=== PATIENT | male | born 1940 | race Caucasian/White ===

== ENCOUNTER 2022-08-01 10:16 | Inpatient (IN) | payer MEDICARE, OTHER ==
[2022-07-31 13:55] LABS: BASOPHILS # (AUTO) 0.1 (0.0-0.1); BASOPHILS % 1.2 % (0.0-1.0); EOSINOPHILS # (AUTO) 0.1 (0.0-0.4); EOSINOPHILS % 1.6 % (0.0-6.0); HEMATOCRIT 46.1 % (38.2-49.6); HEMOGLOBIN 13.9 g/dL (14.0-18.0); LYMPHOCYTES # (AUTO) 0.9 (1.0-3.2); LYMPHOCYTES % 18.5 % (18.0-39.1); MEAN CORPUSCULAR HEMOGLOBIN 31.7 pg (28-32); MEAN CORPUSCULAR HGB CONC 30.2 g/dL (31-35); MONOCYTES # (AUTO) 0.6 (0.2-0.8); MONOCYTES % 11.4 % (4.4-11.3); NEUTROPHILS # (AUTO) 3.2 (2.1-6.9); NEUTROPHILS % 65.9 % (38.7-80.0); PLATELET COUNT 145 x10e3/uL (140-360); RED BLOOD COUNT 4.39 x10e6/uL (4.3-5.7); RED CELL DISTRIBUTION WIDTH 14.6 % (11.7-14.4)
[2022-07-31 14:11] LABS: ANION GAP 16.8 mmol/L (8-16); CREATININE, SERUM 1.09 mg/dL (0.72-1.25); POTASSIUM 4.8 mmol/L (3.5-5.1)
[~2022-08-01] VITALS: Ht 185.4 cm; Wt 97.5 kg
[~2022-08-01 10:16] MED LIST: ACETAMINOPHEN325 M1 PO; AMIODARONE HCL; ANUSOL-HC25 MG RC; BUMETANIDE; CELECOXIB; CLOTRIMAZOLE-BE15 GM TOP; CRESTOR10 MG PO; DOCUSATE SODIU100 MG PO; FEROSUL325 MG PO; FLOMAX0.4 MG PO; GENTAMICIN; LATANOPROST2.5 ML OP; NEURONTIN300 MG PO; OMEPRAZOLE40 MG PO; VITAMIN D32400 UNIT/
[2022-08-01] MEDS ORDERED: IOPAMIDOL 610MG/1ML 300 MG/ML VIAL IV ONE (13:40)
[2022-08-01] MEDS ORDERED: BUPIVACAINE HCL 0.5% INJ 30 ML VIAL INJ ONE (13:40)
[2022-08-01] MEDS ORDERED: LIDOCAINE HCL/EPINEPHRINE/PF 10 ML VIAL ONE (13:42)
[2022-08-01] MEDS ORDERED: POVIDONE IODINE 0.05% 0.05 % ML PO ONE (14:16)
[2022-08-01] MEDS ORDERED: ONDANSETRON HCL INJ 2MG/ML 2ML 2 MG/ML VIAL ONE (14:16)
[2022-08-01] MEDS ORDERED: GLYCOPYRROLATE INJ 0.2 MG/ML VIAL ONE (14:16)
[2022-08-01] MEDS ORDERED: SEVOFLURANE INHAL SOLN 250 ML PEN BTL ONE (14:16)
[2022-08-01] MEDS ORDERED: LIDOCAINE HCL 2% LOCAL INJ 5 ML SDV VIAL INJ ONE (14:16)
[2022-08-01] MEDS ORDERED: PROPOFOL IV EMULSION 10 MG/ML 20 ML VIAL ONE (14:16)
[2022-08-01] MEDS ORDERED: NEOSTIGMINE 1 MG/ML 10ML VIAL ONE (14:16)
[2022-08-01] MEDS ORDERED: ONDANSETRON HCL INJ 2MG/ML 2ML 2 MG/ML VIAL IV PRN (16:15)
[2022-08-01] MEDS ORDERED: PHENAZOPYRIDINE HCL 100 MG TAB PO PRN (16:15)
[2022-08-01] MEDS ORDERED: FENTANYL CITRATE/PF 100MCG/2 ML INJ ONE ×2 (17:23→18:10)
[2022-08-01 17:31] VITALS: BP 158/86
[2022-08-01 17:50] VITALS: BP 158/86
[2022-08-01] MEDS: DOCUSATE SODIUM 100 MG CAP PO SCH (18:00)
[2022-08-01] MEDS: ACETAMINOPHEN 1000 MG/100 ML IV PRN (18:01)
[2022-08-01] MEDS: SODIUM CHLORIDE 0.9% 1000ML 1,000 ML IV SCH (18:01)
[2022-08-01] MEDS ORDERED: MIDAZOLAM HCL 2 MG/2 ML VIAL ONE (18:10)
[2022-08-01] MEDS: ACETAMINOPHEN/CODEINE 300MG - 30MG TAB PO PRN ×2 (19:30→23:58)
[2022-08-01 20:11] VITALS: BP 123/64
[2022-08-01 20:26] VITALS: BP 123/64
[2022-08-01] MEDS: DIPHENHYDRAMINE HCL 25 MG CAP PO PRN (20:56)
[2022-08-01] MEDS ORDERED: ACETAMINOPHEN 325 MG TAB PO PRN (22:45)
[2022-08-01] MEDS ORDERED: GABAPENTIN 300 MG CAP PO ONE (23:45)
[2022-08-02] VITALS (8 sets, daily range): BP systolic 138–151; BP diastolic 75–82
[2022-08-02] MEDS: SODIUM CHLORIDE 0.9% 1000ML 1,000 ML IV SCH ×2 (05:52→20:41)
[2022-08-02 08:03] LABS: BASOPHILS % 0.3 % (0.0-1.0); HEMATOCRIT 42.2 % (38.2-49.6); LYMPHOCYTES # (AUTO) 0.5 (1.0-3.2); LYMPHOCYTES % 6.6 % (18.0-39.1); MEAN CORPUSCULAR HEMOGLOBIN 31.9 pg (28-32); MEAN CORPUSCULAR HGB CONC 30.8 g/dL (31-35); MEAN CORPUSCULAR VOLUME 103.4 fL (81-99); MONOCYTES # (AUTO) 0.8 (0.2-0.8); MONOCYTES % 10.7 % (4.4-11.3); NEUTROPHILS # (AUTO) 6.2 (2.1-6.9); NEUTROPHILS % 81.9 % (38.7-80.0); PLATELET COUNT 134 x10e3/uL (140-360); RED BLOOD COUNT 4.08 x10e6/uL (4.3-5.7); RED CELL DISTRIBUTION WIDTH 14.4 % (11.7-14.4)
[2022-08-02 08:18] LABS: CALCIUM 8.3 mg/dL (8.4-10.2); CREATININE, SERUM 0.96 mg/dL (0.72-1.25)
[2022-08-02] MEDS ORDERED: LATANOPROST(OPTH) 2.5 ML BTL OP SCH (09:00)
[2022-08-02] MEDS: DOCUSATE SODIUM 100 MG CAP PO SCH ×2 (09:00)
[2022-08-02] MEDS: SIMVASTATIN 20 MG TAB PO SCH (09:11)
[2022-08-02] MEDS: GABAPENTIN 300 MG CAP PO SCH (09:11)
[2022-08-02] MEDS: HYDROCORTISONE ACETATE 25 MG/SUPP.RECT SUPP RC SCH ×2 (09:11→14:48)
[2022-08-02] MEDS: PANTOPRAZOLE SOD 40 MG TABEC PO SCH (09:11)
[2022-08-02] MEDS: ACETAMINOPHEN/CODEINE 300MG - 30MG TAB PO PRN (09:11)
[2022-08-02] MEDS: FERROUS SULFATE 325 MG TAB PO SCH (09:11)
[2022-08-02] MEDS: TAMSULOSIN HCL 0.4 MG CAP PO SCH (09:12)
[2022-08-02] MEDS: AMIODARONE HCL 200 MG TAB PO SCH (10:55)
[2022-08-02] MEDS: ACETAMINOPHEN 1000 MG/100 ML IV PRN (10:57)
[2022-08-02] MEDS: LATANOPROST(OPTH) 2.5 ML BTL OP SCH (21:00)
[2022-08-03] VITALS (7 sets, daily range): BP systolic 134–156; BP diastolic 75–95
[2022-08-03 05:43] LABS: BASOPHILS % 0.4 % (0.0-1.0); HEMATOCRIT 40.5 % (38.2-49.6); HEMOGLOBIN 12.2 g/dL (14.0-18.0); LYMPHOCYTES # (AUTO) 0.5 (1.0-3.2); LYMPHOCYTES % 5.9 % (18.0-39.1); MEAN CORPUSCULAR HEMOGLOBIN 31.9 pg (28-32); MEAN CORPUSCULAR HGB CONC 30.1 g/dL (31-35); MONOCYTES % 12.6 % (4.4-11.3); NEUTROPHILS % 79.1 % (38.7-80.0); PLATELET COUNT 138 x10e3/uL (140-360); RED BLOOD COUNT 3.82 x10e6/uL (4.3-5.7); RED CELL DISTRIBUTION WIDTH 14.7 % (11.7-14.4)
[2022-08-03 05:59] LABS: ANION GAP 14.8 mmol/L (8-16); CALCIUM 8.2 mg/dL (8.4-10.2); CREATININE, SERUM 0.94 mg/dL (0.72-1.25); POTASSIUM 3.8 mmol/L (3.5-5.1)
[2022-08-03] MEDS: HYDROCORTISONE ACETATE 25 MG/SUPP.RECT SUPP RC SCH ×2 (08:45→14:26)
[2022-08-03] MEDS: DOCUSATE SODIUM 100 MG CAP PO SCH (08:49)
[2022-08-03] MEDS: GABAPENTIN 300 MG CAP PO SCH (08:49)
[2022-08-03] MEDS: AMIODARONE HCL 200 MG TAB PO SCH (08:49)
[2022-08-03] MEDS: SIMVASTATIN 20 MG TAB PO SCH (08:49)
[2022-08-03] MEDS: PANTOPRAZOLE SOD 40 MG TABEC PO SCH (08:49)
[2022-08-03] MEDS: FERROUS SULFATE 325 MG TAB PO SCH (08:49)
[2022-08-03] MEDS: TAMSULOSIN HCL 0.4 MG CAP PO SCH (08:49)
[2022-08-03] MEDS: SODIUM CHLORIDE 0.9% 1000ML 1,000 ML IV SCH ×2 (12:05→23:00)
[2022-08-03] MEDS: LATANOPROST(OPTH) 2.5 ML BTL OP SCH (19:49)
[2022-08-03] MEDS: ACETAMINOPHEN/CODEINE 300MG - 30MG TAB PO PRN (19:49)
[2022-08-03] MEDS: DIPHENHYDRAMINE HCL 25 MG CAP PO PRN (21:49)
[2022-08-03] MEDS: MELATONIN 5 MG TABLET PO PRN (23:00)
[2022-08-04] VITALS (7 sets, daily range): BP systolic 120–150; BP diastolic 70–89
[2022-08-04] MEDS: ACETAMINOPHEN/CODEINE 300MG - 30MG TAB PO PRN ×4 (02:46→23:17)
[2022-08-04 05:07] LABS: BASOPHILS % 0.5 % (0.0-1.0); EOSINOPHILS # (AUTO) 0.1 (0.0-0.4); EOSINOPHILS % 1.3 % (0.0-6.0); HEMATOCRIT 35.1 % (38.2-49.6); HEMOGLOBIN 10.6 g/dL (14.0-18.0); LYMPHOCYTES # (AUTO) 0.7 (1.0-3.2); LYMPHOCYTES % 10.9 % (18.0-39.1); MEAN CORPUSCULAR HEMOGLOBIN 31.7 pg (28-32); MEAN CORPUSCULAR HGB CONC 30.2 g/dL (31-35); MEAN CORPUSCULAR VOLUME 105.1 fL (81-99); MONOCYTES # (AUTO) 0.8 (0.2-0.8); MONOCYTES % 12.8 % (4.4-11.3); NEUTROPHILS # (AUTO) 4.6 (2.1-6.9); NEUTROPHILS % 72.3 % (38.7-80.0); PLATELET COUNT 136 x10e3/uL (140-360); RED BLOOD COUNT 3.34 x10e6/uL (4.3-5.7); RED CELL DISTRIBUTION WIDTH 14.5 % (11.7-14.4)
[2022-08-04 05:36] LABS: ANION GAP 10.8 mmol/L (8-16); CREATININE, SERUM 0.77 mg/dL (0.72-1.25); POTASSIUM 3.8 mmol/L (3.5-5.1)
[2022-08-04] MEDS: HYDROCORTISONE ACETATE 25 MG/SUPP.RECT SUPP RC SCH ×3 (09:00→17:00)
[2022-08-04] MEDS: TAMSULOSIN HCL 0.4 MG CAP PO SCH (09:01)
[2022-08-04] MEDS: FERROUS SULFATE 325 MG TAB PO SCH (09:01)
[2022-08-04] MEDS: PANTOPRAZOLE SOD 40 MG TABEC PO SCH (09:01)
[2022-08-04] MEDS: DOCUSATE SODIUM 100 MG CAP PO SCH (09:01)
[2022-08-04] MEDS: AMIODARONE HCL 200 MG TAB PO SCH (09:01)
[2022-08-04] MEDS: GABAPENTIN 100 MG CAP PO SCH ×3 (09:01→20:24)
[2022-08-04] MEDS: SIMVASTATIN 20 MG TAB PO SCH (09:02)
[2022-08-04] MEDS: SODIUM CHLORIDE 0.9% 1000ML 1,000 ML IV SCH (12:45)
[2022-08-04] MEDS: LATANOPROST(OPTH) 2.5 ML BTL OP SCH (18:34)
[2022-08-04] MEDS: MELATONIN 5 MG TABLET PO PRN (20:24)
[2022-08-04] MEDS: DIPHENHYDRAMINE HCL 25 MG CAP PO PRN (23:17)
[2022-08-05 05:01] LABS: BASOPHILS % 0.7 % (0.0-1.0); EOSINOPHILS # (AUTO) 0.3 (0.0-0.4); EOSINOPHILS % 4.8 % (0.0-6.0); HEMATOCRIT 33.7 % (38.2-49.6); HEMOGLOBIN 10.2 g/dL (14.0-18.0); LYMPHOCYTES # (AUTO) 0.9 (1.0-3.2); LYMPHOCYTES % 15.2 % (18.0-39.1); MEAN CORPUSCULAR HEMOGLOBIN 31.6 pg (28-32); MEAN CORPUSCULAR HGB CONC 30.3 g/dL (31-35); MEAN CORPUSCULAR VOLUME 104.3 fL (81-99); MONOCYTES # (AUTO) 0.6 (0.2-0.8); MONOCYTES % 11.5 % (4.4-11.3); NEUTROPHILS # (AUTO) 3.6 (2.1-6.9); NEUTROPHILS % 64.6 % (38.7-80.0); PLATELET COUNT 130 x10e3/uL (140-360); RED BLOOD COUNT 3.23 x10e6/uL (4.3-5.7)
[2022-08-05 05:17] LABS: ANION GAP 9.8 mmol/L (8-16); CALCIUM 7.8 mg/dL (8.4-10.2); CREATININE, SERUM 0.7 mg/dL (0.72-1.25); POTASSIUM 3.8 mmol/L (3.5-5.1)
[2022-08-05] MEDS: DIPHENHYDRAMINE HCL 25 MG CAP PO PRN (05:18)
[2022-08-05] MEDS: SODIUM CHLORIDE 0.9% 1000ML 1,000 ML IV SCH ×2 (05:18→21:30)
[2022-08-05 06:48] VITALS: BP 124/69
[2022-08-05 08:05] VITALS: BP 121/63
[2022-08-05] MEDS: HYDROCORTISONE ACETATE 25 MG/SUPP.RECT SUPP RC SCH ×3 (09:00→17:00)
[2022-08-05] MEDS ORDERED: HYDROXYZINE HCL 10 MG TAB PO PRN (09:00)
[2022-08-05 09:03] VITALS: BP 121/63
[2022-08-05] MEDS: PANTOPRAZOLE SOD 40 MG TABEC PO SCH (09:06)
[2022-08-05] MEDS: TAMSULOSIN HCL 0.4 MG CAP PO SCH (09:06)
[2022-08-05] MEDS: DOCUSATE SODIUM 100 MG CAP PO SCH (09:06)
[2022-08-05] MEDS: FERROUS SULFATE 325 MG TAB PO SCH (09:07)
[2022-08-05] MEDS: AMIODARONE HCL 200 MG TAB PO SCH (09:07)
[2022-08-05] MEDS: GABAPENTIN 100 MG CAP PO SCH ×3 (09:07→21:29)
[2022-08-05] MEDS: SOLIFENACIN SUCCINATE 5 MG TAB PO SCH (09:16)
[2022-08-05] MEDS: LORATADINE 10 MG TAB PO SCH (09:16)
[2022-08-05] MEDS: SIMVASTATIN 20 MG TAB PO SCH (09:17)
[2022-08-05] MEDS ORDERED: ONDANSETRON HCL 4 MG ORAL DISINTEGRATING TAB PO PRN (11:00)
[2022-08-05 12:47] VITALS: BP 121/70
[2022-08-05 16:03] VITALS: BP 137/81
[2022-08-05 20:00] VITALS: BP 133/52
[2022-08-05] MEDS: ACETAMINOPHEN/CODEINE 300MG - 30MG TAB PO PRN (21:28)
[2022-08-05] MEDS: MELATONIN 5 MG TABLET PO PRN (21:28)
[2022-08-05] MEDS: LATANOPROST(OPTH) 2.5 ML BTL OP SCH (21:29)
[2022-08-06] VITALS: BP 130/68
[2022-08-06 00:25] VITALS: BP 137/81
[2022-08-06] MEDS: SODIUM CHLORIDE 0.9% 1000ML 1,000 ML IV SCH ×2 (02:55→15:37)
[2022-08-06] MEDS: ACETAMINOPHEN/CODEINE 300MG - 30MG TAB PO PRN (05:43)
[2022-08-06 08:00] VITALS: BP 121/78
[2022-08-06 08:04] VITALS: BP 121/78
[2022-08-06] MEDS: TAMSULOSIN HCL 0.4 MG CAP PO SCH (09:49)
[2022-08-06] MEDS: DOCUSATE SODIUM 100 MG CAP PO SCH (09:49)
[2022-08-06] MEDS: PANTOPRAZOLE SOD 40 MG TABEC PO SCH (09:50)
[2022-08-06] MEDS: SIMVASTATIN 20 MG TAB PO SCH (09:50)
[2022-08-06] MEDS: GABAPENTIN 100 MG CAP PO SCH ×2 (09:50→15:37)
[2022-08-06] MEDS: FERROUS SULFATE 325 MG TAB PO SCH (09:50)
[2022-08-06] MEDS: HYDROCORTISONE ACETATE 25 MG/SUPP.RECT SUPP RC SCH (09:51)
[2022-08-06] MEDS: LORATADINE 10 MG TAB PO SCH (09:51)
[2022-08-06] MEDS: SOLIFENACIN SUCCINATE 5 MG TAB PO SCH (09:51)
[2022-08-06] MEDS: AMIODARONE HCL 200 MG TAB PO SCH (09:52)
[2022-08-06 11:21] VITALS: BP 136/73
[2022-08-06 16:06] VITALS: BP 140/77
== END 2022-08-06 19:35 | DRG 352 ==
LOC: OR 10:16 → MED/SURG 17:31
PROVIDERS: ADMIT Internal Medicine; ATTEND Internal Medicine
PROC: 0T788ZZ Dilation of Bilateral Ureters, Via Natural or Artificial Opening Endoscopic (ICD-10-PCS; 2022-08-01)
PROC: BT141ZZ Fluoroscopy of Kidneys, Ureters and Bladder using Low Osmolar Contrast (ICD-10-PCS; 2022-08-01)
PROC: 0T7D8ZZ Dilation of Urethra, Via Natural or Artificial Opening Endoscopic (ICD-10-PCS; 2022-08-01)
PROC: 0YU50JZ Supplement Right Inguinal Region with Synthetic Substitute, Open Approach (ICD-10-PCS; principal; 2022-08-01 13:37)
PROC: 0T5B8ZZ Destruction of Bladder, Via Natural or Artificial Opening Endoscopic (ICD-10-PCS; 2022-08-01 13:37)
DX: K40.30 Unilateral inguinal hernia, with obstruction, without gangrene, not specified as recurrent (principal); N40.1 Benign prostatic hyperplasia with lower urinary tract symptoms; N39.498 Other specified urinary incontinence; R33.8 Other retention of urine; R39.11 Hesitancy of micturition; R35.0 Frequency of micturition; R35.1 Nocturia; N26.1 Atrophy of kidney (terminal); N32.3 Diverticulum of bladder; N35.919 Unspecified urethral stricture, male, unspecified site; I48.91 Unspecified atrial fibrillation; Z79.01 Long term (current) use of anticoagulants; R31.0 Gross hematuria; E66.09 Other obesity due to excess calories; Z68.28 Body mass index [BMI] 28.0-28.9, adult; Z85.038 Personal history of other malignant neoplasm of large intestine; Z20.822 Contact with and (suspected) exposure to COVID-19; N26.9 Renal sclerosis, unspecified; R39.16 Straining to void; N32.81 Overactive bladder
CPT/HCPCS: 36415; 71046; 74420; 80048; 85025; 88304; 93005; 94799; C1758; C1781; J0690; J2001; J2250; J2405; J2710; J3010; J7030